=== PATIENT | female | born 1945 | race Caucasian/White ===

== ENCOUNTER 2016-08-11 10:26 | Outpatient (CLI) | payer OTHER ==
--- NOTE | 2016-08-11 12:26 | DIAGNOSTIC IMAGING REPORT ---
PROCEDURE: MG BILATERAL DIAGNOSTIC W/CAD INDICATION: Left breast mass for 2 months, new baseline screening. TECHNIQUE: Standard CC and MLO views of each breast. Direct lateral left breast. Spot compression views of the left breast in the CC and MLO projection. CAD was used. The patient then went on to ultrasound where bell scale and color Doppler sonographic imaging of the left breast was performed. COMPARISON: None. FINDINGS: Mammograms: Moderately dense fibroglandular tissue is present bilaterally. In the 1 o'clock position of the left breast, at a mid depth of the glandular tissue, there is a spiculated mass with architectural distortion measuring approximately 2 cm. Additionally, there is a 5 mm mass in the 12 o'clock position at a similar depth. Inverted nipples bilaterally, chronic. No suspicious clustered microcalcifications or adenopathy visible. Ultrasound: The area of mass is approximately 2.1 cm away from the nipple. There is a 2.0 x 1.9 x 0.9 cm irregular mass with finger-like projections infiltrate in the surrounding tissue, and a hyperechoic rim. There is mild posterior shadowing and mild peripheral vascular flow extending into the mass. Adjacent to the mass, approximately 4 mm away, in the 12 o'clock position is a bilobed, ovoid, horizontally oriented hypoechoic structure, a cyst or intramammary lymph node. No other unusual masses. IMPRESSION: 1. Irregular, spiculated, at 2 cm mass in the 1 o'clock position of the left breast worrisome for neoplasm. 2. An adjacent 5 mm hypoechoic ovoid structure, either a simple cyst or lymph node. 3. Ultrasound-guided biopsy is recommended. 4. Findings and recommendations were discussed with the patient and with Dr. Peoples. RESULT CODE: 5- Highly suggestive of malignancy.
== END 2016-08-11 23:00 ==
LOC: MAM SRH 10:26
DX: N63 Unspecified lump in breast (principal)

== ENCOUNTER 2016-08-13 11:52 | Outpatient (CLI) | payer OTHER ==
--- NOTE | 2016-08-13 16:13 | DIAGNOSTIC IMAGING REPORT ---
PROCEDURE: US NEEDLE CORE BREAST BX-LEFT INDICATION: LEFT BREAST MASS TECHNIQUE: Written informed consent was obtained from the patient prior to the procedure. Risks discussed included but were not limited to bleeding, infection, injury to adjacent structures, pain, nondiagnostic sample and allergic reaction. It was agreed to proceed. RPO position on the ultrasound gurney. Preliminary sonographic imaging demonstrated a 2.0 cm irregular, spiculated, hypoechoic left breast mass. An appropriate skin entry site was chosen and marked. The skin was prepped and draped in the usual sterile fashion. Skin and subcutaneous tissue was anesthetized thoroughly with 1% lidocaine. Under continuous sonographic guidance, a 13.5 gauge needle was directed into left breast mass. Through this, five passes were made with a 14-gauge coaxial biopsy device. Samples were placed into formalin and taken to the lab. The static and real-time sonographic images were acquired documenting the needle in position through the mass. Sample adequacy was assessed. The needle was removed, hemostasis was achieved, the skin was cleansed, and a sterile bandage was applied. The patient was helped off the table. The patient left the radiology department in stable condition with standard post procedure instructions. She tolerated the procedure well and there were no immediate complications. COMPARISON: 08/11/2016 FINDINGS: Grossly adequate sample of left breast mass. IMPRESSION: 1. Successful ultrasound-guided left breast mass biopsy. 2. Pathology is pending.
== END 2016-08-13 23:00 | disposition home or self-care (01) ==
LOC: US SRH 11:52
PROC: 0HBT3ZX Excision of Right Breast, Percutaneous Approach, Diagnostic (ICD-10-PCS; principal; 2016-08-13)
DX: N63 Unspecified lump in breast (principal)

== ENCOUNTER 2016-08-28 11:10 | Outpatient (CLI) | payer OTHER | END 2016-08-28 23:00 | disposition home or self-care (01) | LOC: LAB SRH 11:10 | DX: C50.412 Malignant neoplasm of upper-outer quadrant of left female breast (principal) | CPT/HCPCS: 90074; 91631 ==